=== PATIENT | female | born 1985 | race Caucasian/White ===

== ENCOUNTER 2019-02-08 09:36 | Emergency (ER) | payer MEDICAID, OTHER ==
[~2019-02-08] VITALS: Ht 172.7 cm; Wt 88.0 kg
[2019-02-08 09:39] VITALS: BP 129/78
--- NOTE | 2019-02-08 12:14 | NUR ---
Short Arm Sling applied by ALESIA-Sai. For discharge- After care Instructions given verbalized understanding. Home ambulatory Stable
== END 2019-02-08 12:18 | disposition home or self-care (01) ==
LOC: ER 10:54
DX: S62.316A Displaced fracture of base of fifth metacarpal bone, right hand, initial encounter for closed fracture (principal); W17.89XA Other fall from one level to another, initial encounter; Y93.39 Activity, other involving climbing, rappelling and jumping off; Y92.89 Other specified places as the place of occurrence of the external cause; Y99.8 Other external cause status
CPT/HCPCS: 73130-TC